=== PATIENT | female | born 1960 | race Caucasian/White ===

== ENCOUNTER 2018-09-16 07:36 | Day surgery (SDC) | payer BC ==
[~2018-09-16] VITALS: Ht 162.6 cm; Wt 73.8 kg
[2018-09-16 08:01] VITALS: BP 107/69; PULSE 64; TEMP 97.7
[2018-09-16] MEDS ORDERED: PERCOCET 325 MG1 TA2 PO (08:27)
[2018-09-16] MEDS ORDERED: MULTIPLE VITAMI1 CAP PO (08:28)
[2018-09-16] MEDS ORDERED: PEPCID COMPLETE1 CTB PO (08:28)
[2018-09-16] MEDS ORDERED: ZOFRAN ODT4 MG PO (08:28)
[2018-09-16] MEDS ORDERED: B-121000 MCG PO (08:28)
[2018-09-16 10:45] VITALS: BP 110/64; PULSE 77; TEMP 97.5
--- NOTE | 2018-09-16 10:45 | NUR ---
The patient arrived back to [facility] from the recovery room at this time. The patient appears alert and oriented and denies any pain or nausea at this time. Post operative vital signs were started at this time. The patient agrees to try some vanilla pudding and water at this time. The patient reports feeling the urge to void and was assisted to the bathroom at this time. The patient ambulated using a steady gait and appeared tolerate the actvity well. The patient voided without difficulty.
[2018-09-16 11:00] VITALS: BP 114/66; PULSE 79
--- NOTE | 2018-09-16 11:00 | NUR ---
The patient appears to be resting comfortably at this time. The patient has finished her food and drink and appeared to tolerate both well. The patient's daughters were brought back to be at her bedside.
[2018-09-16 11:15] VITALS: BP 106/60; PULSE 86
--- NOTE | 2018-09-16 11:15 | NUR ---
The patient appears to be resting comfortably on the cart at this time. The patient's family remains at her bedside. Will continue to monitor the patient.
[2018-09-16] MEDS ORDERED: NORCO 325 MG-51 TAB PO (11:25)
[2018-09-16] MEDS ORDERED: PYRIDIUM 100MG100 MG PO (11:25)
[2018-09-16] MEDS ORDERED: SENNA-LAX8.6 MG PO (11:26)
--- NOTE | 2018-09-16 11:30 | NUR ---
The patient ambulated back to the bathroom with the stand by assistance of one and appeared to tolerate the activity well. The patient voided without difficulty. The patient's IV was removed and she is going to get dressed.
--- NOTE | 2018-09-16 11:40 | NUR ---
Discharge instructions were reviewed with the patient and her family at this time. They all verbalized understanding and have no questions for the nurse at this time.
--- NOTE | 2018-09-16 11:45 | NUR ---
The patient ambulated out via ambulation using a steady gait and appeared to tolerate the activity well. The patient's belongings and discharge paperwork were sent with her.
== END 2018-09-16 11:45 | disposition home or self-care (01) ==
LOC: SDCO 07:36
DX: N20.1 Calculus of ureter (principal); Z98.84 Bariatric surgery status; Z87.442 Personal history of urinary calculi; R35.1 Nocturia; R35.0 Frequency of micturition; R30.0 Dysuria; R39.15 Urgency of urination
CPT/HCPCS: C1769; C2617; J0690; J1100; J1885; J2405; J2704; J3010

== ENCOUNTER → 2018-09-28 | Outpatient (REF) ==
[~2018-09-28] MED LIST: B-121000 MCG PO; MULTIPLE VITAMI1 CAP PO; NORCO 325 MG-51 TAB PO; PEPCID COMPLETE1 CTB PO; PERCOCET 325 MG1 TA2 PO; PYRIDIUM 100MG100 MG PO; SENNA-LAX8.6 MG PO; ZOFRAN ODT4 MG PO
== END ==
LOC: ZLAB.WCH 18:48
DX: Z01.89 Encounter for other specified special examinations (principal)